=== PATIENT | female | born 1965 | race Caucasian/White ===

== ENCOUNTER 2021-11-05 13:57 | Emergency (ER) | payer OTHER ==
[~2021-11-05] VITALS: Ht 172.7 cm; Wt 92.1 kg
[2021-11-05] MEDS ORDERED: ARMOUR THYROID30 M1 PO (14:33)
[2021-11-05] MEDS ORDERED: OZEMPIC0.25 MG/0. SQ (14:33)
[2021-11-05] MEDS ORDERED: ARMOUR THYROID120 M1 (14:33)
[2021-11-05] MEDS ORDERED: METFORMIN HCL500 M1 (14:33)
[2021-11-05] MEDS ORDERED: LYLLANA1 EAC4 TD (14:34)
[2021-11-05] MEDS ORDERED: FREESTYLE LIBR1 EAC4 MC (14:34)
[2021-11-05] MEDS ORDERED: SPIRONOLACTONE50 MG PO (14:34)
[2021-11-05] MEDS ORDERED: MICRO-K 1010 MEQ PO (14:34)
[2021-11-05] MEDS ORDERED: MAG-OXIDE400 MG PO (14:35)
[2021-11-05] MEDS ORDERED: FOLBIC TABLET1 EACH PO (14:35)
== END 2021-11-05 19:46 | disposition home or self-care (01) ==
LOC: ER 13:57
DX: J02.9 Acute pharyngitis, unspecified (principal); B96.0 Mycoplasma pneumoniae [M. pneumoniae] as the cause of diseases classified elsewhere; Z88.2 Allergy status to sulfonamides; Z88.1 Allergy status to other antibiotic agents; E11.9 Type 2 diabetes mellitus without complications; Z79.84 Long term (current) use of oral hypoglycemic drugs; D58.9 Hereditary hemolytic anemia, unspecified; H92.03 Otalgia, bilateral

== ENCOUNTER 2021-11-08 13:43 | Emergency (ER) | payer OTHER ==
[~2021-11-08] VITALS: Ht 172.7 cm; Wt 92.1 kg
[~2021-11-08 13:43] MED LIST: ARMOUR THYROID120 M1; ARMOUR THYROID30 M1 PO; FOLBIC TABLET1 EACH PO; FREESTYLE LIBR1 EAC4 MC; LYLLANA1 EAC4 TD; MAG-OXIDE400 MG PO; METFORMIN HCL500 M1; MICRO-K 1010 MEQ PO; OZEMPIC0.25 MG/0. SQ; SPIRONOLACTONE50 MG PO
== END 2021-11-08 20:26 | disposition home or self-care (01) ==
LOC: ER 13:43
DX: U07.1 COVID-19 (principal); E86.0 Dehydration; R16.1 Splenomegaly, not elsewhere classified; Z88.1 Allergy status to other antibiotic agents; Z88.2 Allergy status to sulfonamides